=== PATIENT | male | born 1990 | race Caucasian/White ===

== ENCOUNTER 2018-03-02 20:25 | Emergency (ER) | payer OTHER ==
[~2018-03-02] VITALS: Ht 167.6 cm; Wt 65.8 kg
[2018-03-02] MEDS ORDERED: Imitrex25 MG PO (20:46)
== END 2018-03-02 21:07 | disposition home or self-care (01) ==
LOC: ER 20:25
DX: R51 Headache (principal); Z79.899 Other long term (current) drug therapy
CPT/HCPCS: 96372; 99283; J1100; J1885; Q0163

== ENCOUNTER 2018-03-26 23:39 | Emergency (ER) | payer OTHER ==
[~2018-03-26] VITALS: Ht 180.3 cm; Wt 65.8 kg
[~2018-03-26 23:39] MED LIST: Imitrex25 MG PO
[2018-03-26] MEDS ORDERED: ACETAMINOPHEN500 MG PO (23:48)
[2018-03-26] MEDS ORDERED: NAPR220 PO (23:48)
[2018-03-26] MEDS ORDERED: IBUP800 PO (23:48)
[2018-03-26] MEDS ORDERED: Excedrin Extra1 EACH PO (23:48)
[2018-03-27] MEDS ORDERED: Imitrex100 MG PO (01:29)
== END 2018-03-27 01:57 | disposition home or self-care (01) ==
LOC: ER 23:39
DX: G43.909 Migraine, unspecified, not intractable, without status migrainosus (principal)
CPT/HCPCS: 99283; J1885

== ENCOUNTER 2018-10-19 19:55 | Emergency (ER) | payer OTHER ==
[~2018-10-19] VITALS: Ht 180.3 cm; Wt 63.5 kg
[~2018-10-19 19:55] MED LIST changes: +ACETAMINOPHEN500 MG PO; +Ativan1 MG PO; +Excedrin Extra1 EACH PO; +IBUP800 PO; +Imitrex100 MG PO; +Inderal40 MG PO; +NAPR220 PO; +Zofran Odt4 MG SL
[2018-10-19] MEDS ORDERED: RIZATRIPTAN10 MG PO (20:43)
[2018-10-19] MEDS ORDERED: [UNRECOGNIZED DRUG - OTHER] PO (20:43)
[2018-10-19] MEDS ORDERED: Colace100 MG PO (22:46)
[2018-10-19] MEDS ORDERED: Ultram50 MG PO (22:46)
== END 2018-10-19 23:00 | disposition home or self-care (01) ==
LOC: ER 19:55
DX: K62.3 Rectal prolapse (principal); K59.00 Constipation, unspecified; G43.909 Migraine, unspecified, not intractable, without status migrainosus; F41.9 Anxiety disorder, unspecified; F32.9 Major depressive disorder, single episode, unspecified; F90.9 Attention-deficit hyperactivity disorder, unspecified type; Z79.899 Other long term (current) drug therapy; Z87.891 Personal history of nicotine dependence
CPT/HCPCS: 36415; 96374; 96375; 99283-25; J2270; J2405

== ENCOUNTER → 2019-10-24 | Outpatient (CLI) | payer OTHER ==
[~2019-10-24] MED LIST changes: +Colace100 MG PO; +RIZATRIPTAN10 MG PO; +Ultram50 MG PO; +[UNRECOGNIZED DRUG - OTHER] PO
== END | disposition home or self-care (01) ==
LOC: LAB 14:20 → LAB SHORT 14:20
DX: Z51.81 Encounter for therapeutic drug level monitoring (principal); Z76.89 Persons encountering health services in other specified circumstances; Z79.899 Other long term (current) drug therapy
CPT/HCPCS: G0480

== ENCOUNTER → 2019-12-15 | Outpatient (CLI) | payer OTHER | END | disposition home or self-care (01) | LOC: LAB SHORT 09:27 → LAB 09:27 | DX: F11.20 Opioid dependence, uncomplicated (principal) | CPT/HCPCS: G0480 ==